=== PATIENT | female | born 1995 | race Caucasian/White ===

== ENCOUNTER 2018-04-05 17:54 | Emergency (ER) | payer OTHER ==
--- NOTE | 2018-04-05 18:39 | EDM.PDOC ---
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 She recently had a positive test. She had some spotting about 1 week ago which resolved. She's had no further vaginal bleeding or spotting since then. She saw her OBGYN Dr. Montanez yesterday and was instructed to come to the ER if she develops any cramping or vaginal bleeding. She's had no syncope but says she feels lightheaded. She has had serum hcg tests done at [facility] but does not know the results. Her LMP was 01/01/18 however she tells me that she is 5 weeks along with a due date of November. These numbers do not correlate. By her LMP, she would be 13 weeks 3 days with a due date of 10/08/18. Patient says that her periods have been irregular for approximately [address] Montanez told her she is approximately 5 weeks based on her Hcg level. Lower Abdomen Pain Score (Numeric/FACES): 6 - Related Data Allergies Allergy/AdvReac Type Severity Reaction Status Date / Time No Known Allergies Allergy Verified 04/05/18 18:14 Home Meds: Home Meds . 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 Denies: Fever, Chills GI/Abdominal: Reports: No Symptoms. Denies: Abdominal Pain, Nausea, Vomiting : Reports: Other (pelvic cramping ). Denies: Dysuria ED EXAM - Physical Exam Exam: See Below Exam Limited By: No Limitations General Appearance: Alert, WD/WN, No Apparent Distress Respiratory/Chest: No Respiratory Distress, Lungs Clear Cardiovascular: Regular Rate, Rhythm GI/Abdominal Exam: Normal Bowel Sounds, Soft, Non-Tender (Female) Exam: Other (Patient has no peritoneal inflammation signs. Mild tenderness with palpation to pelvic region. Pelvic exam deferred as she is having no vaginal bleeding. ) Back Exam: Normal Inspection, Full Range of Motion. No: CVA Tenderness (L), CVA Tenderness (R) Course - Vital Signs Last Recorded V/S: Last Vital Signs Temp 98.3 F 04/05/18 18:10 Pulse 94 04/05/18 18:10 Resp 20 04/05/18 18:10 BP 130/77 04/05/18 18:10 Pulse Ox 100 04/05/18 18:10 - Orders/Labs/Meds Orders: Active Orders 24 hr Category Date Time Status OB Transvaginal [US] Stat Exams 04/05/18 18:38 Taken ABO/RH TYPE [BBK] Stat Lab 04/05/18 18:50 Results PATIENT RETYPE [BBK] Stat Lab 04/05/18 18:50 Results Labs: Laboratory Tests 04/05/18 04/05/18 04/05/18 Range/Units 18:40 18:50 18:50 WBC 8.69 (3.98-10.04) K/mm3 RBC 4.51 (3.98-5.22) M/mm3 Hgb 12.7 (11.2-15.7) gm/L Hct 37.5 (34.1-44.9) % MCV 83.1 (79.4-94.8) fl MCH 28.2 (25.6-32.2) pg MCHC 33.9 (32.2-35.5) g/dl RDW Std Deviation 37.9 (36.4-46.3) fL Plt Count 368 (182-369) K/mm3 MPV 9.5 (9.4-12.3) fl Neut % (Auto) 74.9 H (34.0-71.1) % Lymph % (Auto) 18.1 L (19.3-51.7) % Dundy % (Auto) 6.2 (4.7-12.5) % Eos % (Auto) 0.6 L (0.7-5.8) Baso % (Auto) 0.1 (0.1-1.2) % Neut # (Auto) 6.51 H (1.56-6.13) K/mm3 Lymph # (Auto) 1.57 (1.18-3.74) K/mm3 Dundy # (Auto) 0.54 H (0.24-0.36) K/mm3 Eos # (Auto) 0.05 (0.04-0.36) K/mm3 Baso # (Auto) 0.01 (0.01-0.08) K/mm3 HCG, Quant 34653.0 mIU/mL Urine Color Light yellow (Yellow) Urine Appearance Clear (Clear) Urine pH 7.5 (5.0-8.0) Ur Specific [place] 1.020 (1.005-1.030) Urine Protein Negative (Negative) Urine Glucose (UA) Negative (Negative) Urine Ketones Negative (Negative) Urine Occult Blood Negative (Negative) Urine Nitrite Negative (Negative) Urine Bilirubin Negative (Negative) Urine Urobilinogen 1.0 (0.2-1.0) Ur Leukocyte Esterase Trace H (Negative) Urine RBC 0-5 (0-5) /hpf Urine WBC 0-5 (0-5) /hpf Ur Epithelial Cells 10-20 H (0-5) /hpf Urine Bacteria Moderate H (FEW) /hpf Urine Mucus Not seen (FEW) /hpf Blood Type 04/05/18 Range/Units 18:50 WBC (3.98-10.04) K/mm3 RBC (3.98-5.22) M/mm3 Hgb (11.2-15.7) gm/L Hct (34.1-44.9) % MCV (79.4-94.8) fl MCH (25.6-32.2) pg MCHC (32.2-35.5) g/dl RDW Std Deviation (36.4-46.3) fL Plt Count (182-369) K/mm3 MPV (9.4-12.3) fl Neut % (Auto) (34.0-71.1) % Lymph % (Auto) (19.3-51.7) % Dundy % (Auto) (4.7-12.5) % Eos % (Auto) (0.7-5.8) Baso % (Auto) (0.1-1.2) % Neut # (Auto) (1.56-6.13) K/mm3 Lymph # (Auto) (1.18-3.74) K/mm3 Dundy # (Auto) (0.24-0.36) K/mm3 Eos # (Auto) (0.04-0.36) K/mm3 Baso # (Auto) (0.01-0.08) K/mm3 HCG, Quant mIU/mL Urine Color (Yellow) Urine Appearance (Clear) Urine pH (5.0-8.0) Ur Specific [place] (1.005-1.030) Urine Protein (Negative) Urine Glucose (UA) (Negative) Urine Ketones (Negative) Urine Occult Blood (Negative) Urine Nitrite (Negative) Urine Bilirubin (Negative) Urine Urobilinogen (0.2-1.0) Ur Leukocyte Esterase (Negative) Urine RBC (0-5) /hpf Urine WBC (0-5) /hpf Ur Epithelial Cells (0-5) /hpf Urine Bacteria (FEW) /hpf Urine Mucus (FEW) /hpf Blood Type A NEGATIVE - Re-Assessments/Exams Free Text/Narrative Re-Assessment/Exam: CBC is normal. UA is contaminated. Hcg 29,991. Blood type A negative. Transvaginal OB ultrasound read by V-Hua Kang, impression: 1. Gestational sac within uterus without evidence of pole. Considerations include early versus early miscarriage. Ectopic cannot be excluded. Further evaluation is recommended. 2. large right adnexal cyst. 3. Small amount of fluid within the cul-de-sac Patient's ultrasound is consistent with early and estimated gestation of 5-6 weeks. Her exam is benign. She does not appear to have an ectopic based on physical exam. Patient educated on return precautions. Instructed to f/u with OBGYN next week. Departure - Departure Time of Disposition: 20:57 Disposition: Home, Self-Care 01 Condition: Good Clinical Impression: Pelvic cramping - Discharge Information Instructions: Abdominal Pain During , [id number] Referrals: Coral Randhawa MD [Primary Care Provider] - Forms: ED Department Discharge Additional Instructions: Follow-up with DR. Montanez next week Return to ER with worsening pain, vaginal bleeding, worsening lightheadedness Tylenol as needed for pain - My Orders Last 24 Hours: My Active Orders 04/05/18 18:38 OB Transvaginal [US] Stat 04/05/18 18:50 ABO/RH TYPE [BBK] Stat PATIENT RETYPE [BBK] Stat - Assessment/Plan Last 24 Hours: My Active Orders 04/05/18 18:38 OB Transvaginal [US] Stat 04/05/18 18:50 ABO/RH TYPE [BBK] Stat PATIENT RETYPE [BBK] Stat
--- NOTE | 2018-04-09 15:05 | US ---
First trimester obstetrical ultrasound: Multiple real-time images were obtained transvaginally. Comparison: No prior study. Intrauterine gestation is seen. Yolk sac is noted but no pole is seen. 4.4 cm cyst is seen within the right ovary. Left ovary is unremarkable. Small amount of free fluid is seen next to the right ovary. Measurements: Gestational sac: 1.33 cm - 6 weeks 0 days Impression: 1. Single intrauterine gestation with yolk sac but no pole is identified. 2. 4.4 cm simple cyst within the maternal right ovary. Small amount of fluid is seen next to the right ovary. Follow-up study could be obtained in 11 days to further evaluate. Diagnostic code #3 I agree with preliminary report from [facility], finalized at 04/05/18, 9:26 PM Central Time
== END 2018-04-05 21:06 | disposition home or self-care (01) ==
LOC: SUPCPDRO 17:54 → JD.ED 17:54
DX: O99.89 Other specified diseases and conditions complicating pregnancy, childbirth and the puerperium (principal); R10.2 Pelvic and perineal pain; Z3A.01 Less than 8 weeks gestation of pregnancy
CPT/HCPCS: 36415; 76817; 76817-26; 81001; 84702; 85025; 86900; 86901; 99283; 99284-25